=== PATIENT | female | born 1955 | race Caucasian/White ===

== ENCOUNTER → 2018-02-22 | Outpatient (CLI) | payer OTHER | END | disposition home or self-care (01) | LOC: CFH 10:06 | PROVIDERS: ATTEND Specialist | DX: Z12.31 Encounter for screening mammogram for malignant neoplasm of breast (principal) | CPT/HCPCS: 77063; 77067 ==

== ENCOUNTER 2021-04-15 09:54 | Emergency (ER) | payer OTHER ==
[~2021-04-15] VITALS: Ht 165.1 cm; Wt 59.7 kg
--- NOTE | 2021-04-15 12:14 | NUR ---
government clerk: pt rom lobby to room 22
[2021-04-15 12:55] VITALS: BP 136/85
--- NOTE | 2021-04-15 13:06 | NUR ---
PT STATES HAD A BOWEL MOVEMENT WITH BLOOD IN IT 2 DAYS AGO, AND THEN THIS AM HAD ANOTHER ONE WITH SCANT BLOOD IN STOOL, DENIES PAIN OR ANY OTHER SYMPTOMS.
[2021-04-15 13:22] LABS: BASOPHILS % (AUTO) 1 % (0-1); EOSINOPHILS % (AUTO) 0 % (1-7); LYMPHOCYTES % (AUTO) 26 % (22-44); MEAN CORPUSCULAR HEMOGLOBIN 33.9 pg (27.0-34.8); MEAN PLATELET VOLUME 7.1 fL (7.4-10.4); MONOCYTES % (AUTO) 10 % (2-9); NEUTROPHILS % (AUTO) 63 % (42-75); PLATELET COUNT 156 x10^3/uL (130-400); RED BLOOD COUNT 3.74 x10^6/uL (3.82-5.3); RED CELL DISTRIBUTION WIDTH 13.8 % (9.6-15.2)
[2021-04-15 13:29] LABS: MD NO
[2021-04-15 13:33] LABS: ALBUMIN 3.9 g/dL (3.4-5.0); ANION GAP 8 mmol/L (5-15); CALCIUM 9.3 mg/dL (8.5-10.1); CHLORIDE 99 mmol/L (98-107); CREATININE 0.63 mg/dL (0.55-1.02)
== END 2021-04-15 15:06 | disposition home or self-care (01) ==
LOC: ED 13:52
DX: K92.2 Gastrointestinal hemorrhage, unspecified (principal); Z91.013 Allergy to seafood
CPT/HCPCS: 36415; 80048; 82040; 85025; 99283